=== PATIENT | female | born 1945 | race Caucasian/White ===

== ENCOUNTER 2016-09-29 23:32 | Inpatient (IN) | payer OTHER ==
[~2016-09-29] VITALS: Ht 160 cm; Wt 65.0 kg
[~2016-09-29 23:32] MED LIST: CRES10 PO; OMEP40CA3 PO; PLAVIX PO; SYN1 PO; TRIA1CAP44 PO; VITAMIN B12 PO
[2016-09-29 23:50] LABS: ADD SCAN DIFF NO
[2016-09-29 23:53] LABS: BASOPHIL # 0.1 10^3/ul (0.0-0.1); BASOPHILS % 0.6 % (0.0-2.0); EOSINOPHILS # 0.2 10^3/ul (0.0-0.5); EOSINOPHILS % 1.5 % (0.0-7.0); MEAN CORPUSCULAR HEMOGLOBIN 31.2 pg (29.0-33.0); MEAN CORPUSCULAR HGB CONC 34.1 g/dl (32.0-37.0); MEAN CORPUSCULAR VOLUME 91.3 fl (82.0-101.0); MEAN PLATELET VOLUME 10.6 fl (7.4-10.4); MONOCYTES % 7.2 % (0.0-11.0); NEUTROPHIL # 9.4 10^3/ul (1.6-7.5); NEUTROPHILS % 68.3 % (39.0-77.0); PLATELET COUNT 281 10^3/UL (140-415); RED BLOOD COUNT 4.49 10^6/ul (4.20-5.40); RED CELL DISTRIBUTION WIDTH 13.8 % (11.5-14.5); WHITE BLOOD COUNT 13.7 10^3/ul (4.8-10.8)
[2016-09-30] VITALS (11 sets, daily range): BP systolic 126–135; BP diastolic 58–90; PULSE 70–82; RESP 16–20; TEMP 99; Ht 160 cm; Wt 65.0 kg
--- NOTE | 2016-09-30 00:02 | ERA ---
ER Documentation Chief Complaint Date/Time DATE: 09/29/16 TIME: 23:59 Chief Complaint pt reports L arm and leg numbnessstarted 2320 HPI This 71-year-old female comes emergency room for 20 minutes prior having left hand and arm weakness and some left foot weakness while she was putting on her pajamas. She also had pain in her left hand and left shoulder. States that she has a history of a aneurysm. Does say that she has a very slight headache. Denies any recent fever chills. Stated that she felt well earlier today. ROS All systems reviewed and are negative except as per history of present illness. Medications Home Meds Reported Medications [Vitamin B12] No Conflict Check, 5000 MG PO DAILY 11/26/12 [Plavix] No Conflict Check, 75 MG PO DAILY 11/26/12 Levothyroxine Sodium* (Synthroid*) 100 Mcg Tablet, 100 MCG PO DAILY 10/18/12 Omeprazole* (Prilosec*) 40 Mg Capsule.dr, 40 MG PO DAILY 10/18/12 Triamterene-HCTZ (Triamterene-HCTZ) 1 Cap Capsule, 1 CAP PO DAILY 10/18/12 Rosuvastatin Calcium* (Crestor*) 10 Mg Tablet, 10 MG PO DAILY 10/18/12 Allergies Allergies: Coded Allergies: Pentazocine Lactate (Verified Allergy, Unknown, swelling, 07/31/13) acetaminophen (Verified Allergy, Unknown, swelling, 07/31/13) amoxicillin trihydrate (Verified Allergy, Unknown, swelling, 07/31/13) aspirin (Verified Allergy, Unknown, swelling, 07/31/13) codeine (Verified Allergy, Unknown, swelling, 07/31/13) ibuprofen (Verified Allergy, Unknown, swelling, 07/31/13) indomethacin (Verified Allergy, Unknown, swelling, 07/31/13) indomethacin sodium (Verified Allergy, Unknown, swelling, 07/31/13) phenylbutazone (Verified Allergy, Unknown, swelling, 07/31/13) potassium clavulanate (Verified Allergy, Unknown, swelling, 07/31/13) propoxyphene HCl (Verified Allergy, Unknown, swelling, 07/31/13) Uncoded Allergies: DARVOCET (Allergy, Unknown, swelling, 07/31/13) EMPIRIN (Allergy, Unknown, swelling, 07/31/13) FIORENAL (Allergy, Unknown, swelling, 07/31/13) TILSSON (Allergy, Unknown, swelling, 07/31/13) VACADINE (Allergy, Unknown, swelling, 07/31/13) ZOMAX (Allergy, Unknown, swelling, 07/31/13) PMhx/Soc History of Surgery: Yes (Laminectomy; Gallbladder , Sinus Surgery all> 10 yrs ago) Anesthesia Reaction: No Hx Neurological Disorder: No Hx Respiratory Disorders: No Hx Cardiac Disorders: Yes (HTN) Hx Psychiatric Problems: No Hx Miscellaneous Medical Probl: Yes (ANEURYSM, HIGH CHOLESTEROL, LYMPHOMA, KIDNEY) Hx Alcohol Use: No Hx Substance Use: No Hx Tobacco Use: No Smoking Status: Never smoker Physical Exam Vitals Vital Signs Date Time Temp Pulse Resp B/P Pulse Ox O2 Delivery O2 Flow Rate FiO2 09/30/16 01:45 99.0 82 16 131/73 98 2.0 09/30/16 01:00 98 2.0 28 09/29/16 23:45 Nasal Cannula 2 09/29/16 23:40 99.0 99 16 144/69 99 Physical Exam Const: [] No acute distress Head: Atraumatic Eyes: Normal Conjunctiva, EOMI, PERRLA ENT: Normal External Ears, Nose and Mouth. Neck: Full range of motion..~ No meningismus. Resp: Clear to auscultation bilaterally Cardio: Regular rate and rhythm, no murmurs Abd: Soft, non tender, non distended. Normal bowel sounds Skin: No petechiae or rashes Back: No midline or flank tenderness Ext: No cyanosis, or edema Neur: Awake and alert and oriented 3, cranial nerves II through XII intact, decreased vest baster strength of left hand approximately 4 out of 5 however the right hand is also weak. Able to lift both legs off the bed for greater than 10 seconds. No noticeable difference in strength of proximal left arm from the right. Cerebellar finger to nose intact. Psych: Normal Mood and Affect Result Diagram: 09/29/165 09/29/16 2345 Results 24 hrs Laboratory Tests Test 09/29/16 23:45 09/30/16 00:01 09/30/16 02:30 White Blood Count 13.710^3/ul Red Blood Count 4.4910^6/ul Hemoglobin 14.0g/dl Hematocrit 41.0% Mean Corpuscular Volume 91.3fl Mean Corpuscular Hemoglobin 31.2pg Mean Corpuscular Hemoglobin Concent 34.1g/dl Red Cell Distribution Width 13.8% Platelet Count 92485^3/UL Mean Platelet Volume 10.6fl Neutrophils % 68.3% Lymphocytes % 22.0% Monocytes % 7.2% Eosinophils % 1.5% Basophils % 0.6% Nucleated Red Blood Cells % 0.0/100WBC Neutrophils # 9.410^3/ul Lymphocytes # 3.010^3/ul Monocytes # 1.010^3/ul Eosinophils # 0.210^3/ul Basophils # 0.110^3/ul Nucleated Red Blood Cells # 0.010^3/ul Prothrombin Time 11.7Sec Prothrombin Time Ratio 0.9 INR International Normalized Ratio 0.86 Activated Partial Thromboplast Time 23.8Sec Sodium Level 146mmol/L Potassium Level 3.8mmol/L Chloride Level 103mmol/L Carbon Dioxide Level 27mmol/L Anion Gap 20 Blood Urea Nitrogen 18mg/dl Creatinine 1.08mg/dl Glucose Level 144mg/dl Hemoglobin A1c 6.9% Calcium Level 10.1mg/dl Troponin I < 0.012ng/ml Bedside Glucose 128mg/dL Urine Color YELLOW Urine Clarity CLEAR Urine pH 5.0 Urine Specific [place] 1.014 Urine Ketones NEGATIVEmg/dL Urine Nitrite NEGATIVEmg/dL Urine Bilirubin NEGATIVEmg/dL Urine Urobilinogen NEGATIVEmg/dL Urine Leukocyte Esterase 2+Kimberly/ul Urine Microscopic RBC 1/HPF Urine Microscopic WBC 4/HPF Urine Hemoglobin NEGATIVEmg/dL Urine Glucose NEGATIVEmg/dL Urine Total Protein NEGATIVEmg/dl Urine Opiates Screen Negative Urine Barbiturates Negative Urine Amphetamines Screen Negative Urine Benzodiazepines Screen Negative Urine Cocaine Screen Negative Urine Cannabinoids Negative Current Medications Medications (Trade) Dose Ordered Sig/Alden Route PRN Reason Start Time Stop Time Status Last Admin Dose Admin Ondansetron HCl 4 mg 4 mg ONCE STAT IV 09/30/16 02:32 09/30/16 02:49 DC Cefepime HCl (Maxipime 1gm/50 ml (Pmx)) 50 ml @ 100 mls/hr ONCE ONCE IVPB 09/30/16 03:30 09/30/16 03:59 DC 09/30/16 03:27 Ondansetron HCl (Zofran Inj) 4 mg ER BRIDGE PRN IV NAUSEA AND/OR VOMITING 09/30/16 04:00 10/01/16 03:59 Acetaminophen 650 mg 650 mg ER BRIDGE PRN PO MILD PAIN/FEVER 09/30/16 04:00 10/01/16 03:59 Sodium Chloride (NS) 1,000 ml @ 125 mls/hr Q8H IV 09/30/16 04:30 09/30/16 12:29 Levofloxacin (Levaquin) 250 mg DAILY PO 09/30/16 09:00 Procedures/MDM Mild strokelike symptoms with a possible a maximum NIH of 2 slight left hand decreased strength and partial left facial droop. Code stroke was called initially. Discussed the case with the tele-neurologist who does not recommend TPA at this time after examination of the patient. Does recommend MRI and MRA. Patient does have a UTI and is elderly and symptoms may be secondary to that. Patient is currently on Plavix and allergic to many medications including aspirin. Patient believes symptoms did resolve but does still have some hand numbness on her left hand. Spoke with Dr. Kc who will be admitting patient to telemetry for further monitoring. EKG interpretation: Sinus tachycardia rate of 101, left axis deviation, no ST or T-wave changes concerning for acute ischemia, normal intervals. environmental monitoring specialist interpretation: Normal sinus rhythm without arrhythmia Chest x-ray interpretation: I see no acute process. I see no infiltrates, no widened mediastinum, no pneumothorax, no pulmonary edema, no fractures CT brain interpretation: I see no acute process. I see no hemorrhage, no mass- effect or midline shift, no skull fractures Departure Diagnosis: Primary Impression: TIA (transient ischemic attack) Additional Impression: UTI (urinary tract infection) Condition: Serious RICHAR JULIO DO Sep 30, 2016 00:02
[2016-09-30 00:09] LABS: INR 0.86; PARTIAL THROMBOPLASTIN TIME 23.8 Sec (25.0-35.0); PROTIME 11.7 Sec (12.2-14.2); PT RATIO 0.9
[2016-09-30 00:12] LABS: ANION GAP 20 (8-16); BLOOD UREA NITROGEN 18 mg/dl (7-20); CALCIUM 10.1 mg/dl (8.4-10.2); CARBON DIOXIDE 27 mmol/L (21-31); CHLORIDE 103 mmol/L (97-110); CREATININE 1.08 mg/dl (0.44-1.00); GLUCOSE 144 mg/dl (70-220); POTASSIUM 3.8 mmol/L (3.5-5.1); SODIUM 146 mmol/L (135-144)
--- NOTE | 2016-09-30 00:17 | RADRPT ---
PROCEDURE: CT Brain without contrast. CLINICAL INDICATION: Code stroke TECHNIQUE: A CT of the brain was performed utilizing axial imaging from the skull base through the vertex without intravenous contrast. Multiplanar reformatted images were made.The CTDIvol is 42.93 mGy and the DLP is 630.2 mGycm. One or more the following dose reduction techniques were utilized: Automated exposure control, adjus tment of the mA and / or kV according to patient's size, or use of iterative reconstruction techniqu e. COMPARISON: 07/30/2013 FINDINGS: There is no intracranial hemorrhage, mass effect, or midline shift. No extra-axial fluid collection is seen. Minimal atrophy is identified with compensatory ventricular and sulcal enlargement. Mild decreased attenuation is seen in the periventricular and deep white matter, compatible with microva scular ischemic disease. The davila white matter differentiation is well preserved with no acute infar ct detected. The osseous structures and visualized paranasal sinuses are unremarkable. Arterial kourtney cification. Small brain calcifications are again seen in the left frontal, right frontal and possib ly the left parietal region the latter versus dural calcification largest measuring 4 mm in the left frontal region which could represent granulomas or perhaps cysticercosis unchanged compared to prev ious study. Nonspecific approximate 5 mm oval soft tissue density again apparent in subcutaneous upp er frontal extracranial soft tissues again seen not significantly changed compared to previous study. IMPRESSION: No acute bleed. No acute major territory infarct seen. Small brain calcifications again seen which could be secondary to granulomas or perhaps cysticercosis unchanged compared to previous study. Cr itical result discussed with Dr. Bahena at 12:01 a.m. on 09/30/2016. RPTAT: HJES .Chauncey Yusuf MD, Date Time Electronically viewed and signed by .Chauncey Yusuf MD, on 09/30/2016 00:17 .S/
[2016-09-30 00:28] LABS: TROPONIN-I < 0.012 ng/ml (0.00-0.12)
--- NOTE | 2016-09-30 00:42 | RADRPT ---
PROCEDURE: XR Chest. CLINICAL INDICATION: Chest pain. Stroke symptoms TECHNIQUE: Portable AP upright view of the chest was obtained. COMPARISON: 07/31/2013 FINDINGS: The cardiomediastinal silhouette is within normal limits. The lungs are clear of acute infiltrates, mild scattered senescent interstitial changes of the lung parenchyma are again suggested. There is no evidence for pleural effusion, pneumothorax or pulmonary vascular congestion. The osseous struc tures are intact with no evidence for acute abnormality. Calcification of the aorta is present. RPTAT:HJJR IMPRESSION: 1. Subtle scattered interstitial changes of the lung parenchyma similar to the prior exam without ev idence of acute intrathoracic abnormality. 2. Aortic atherosclerosis is present. Physician Anya Date Time Electronically viewed and signed by Kiel Ocampo Physician on 09/30/2016 00:41 JR/
[2016-09-30] MEDS ORDERED: ONDANSETRON 4 MG INJ IV STA (02:32)
[2016-09-30 03:01] LABS: ADD UMIC YES; UR ASCORBIC ACID 40 mg/dL (NEGATIVE); UR BILIRUBIN (Dip) NEGATIVE (NEGATIVE); UR BLOOD (Dip) NEGATIVE (NEGATIVE); UR CLARITY CLEAR (CLEAR); UR COLOR YELLOW (YELLOW); UR GLUCOSE (Dip) NEGATIVE (NEGATIVE); UR KETONES (Dip) NEGATIVE (NEGATIVE); UR LEUKOCYTE ESTERASE (Dip) 2+ Leu/ul (NEGATIVE); UR NITRITE (Dip) NEGATIVE (NEGATIVE); UR RBC 1 /HPF (0-5); UR SPECIFIC GRAVITY (Dip) 1.014 (1.003-1.030); UR TOTAL PROTEIN (Dip) NEGATIVE (NEGATIVE); UR UROBILINOGEN (Dip) NEGATIVE (NEGATIVE)
[2016-09-30 03:16] LABS: BARBITURATES Negative (NEGATIVE); BENZODIAZEPINES Negative (NEGATIVE); CANNABINOIDS Negative (NEGATIVE); COCAINE Negative (NEGATIVE); OPIATES Negative (NEGATIVE)
[2016-09-30] MEDS ORDERED: CEFEPIME 1GM/50 ML (PMX) 50 ML IVPB ONE (03:30)
[2016-09-30] MEDS ORDERED: ONDANSETRON 4 MG INJ IV PRN ×2 (04:00→13:00)
[2016-09-30] MEDS ORDERED: ACETAMINOPHEN 325 MG TAB PO PRN (04:00)
[2016-09-30] MEDS ORDERED: SOD CHLORIDE 0.9% 1,000 ML IV SCH (04:30)
--- NOTE | 2016-09-30 08:29 | RADRPT ---
PROCEDURE: US Carotids. CLINICAL INDICATION: bruit , Stroke TECHNIQUE: Multiple sonographic of the carotid bifurcation region and vertebral arteries were obta ined utilizing davila scale, duplex and color-flow imaging. The images were reviewed on a PACS worksta tion. COMPARISON: No prior studies are available for comparison. FINDINGS: Evaluation of the right carotid bifurcation region reveals no significant calcific atherosclerotic d isease. Evaluation of the left carotid bifurcation region reveals no significant calcific atherosclerotic di sease. There is antegrade flow within the vertebral arteries bilaterally. RIGHT CAROTID MEASUREMENTS: Common Carotid Nowtnt83.1 (cm/sec) Internal Carotid Artery - ruagzomj38.1 (cm/sec) Internal Carotid Artery - mid93 (cm/sec) Internal Carotid Artery - yocere95.5 (cm/sec) Internal Carotid/Common Carotid1.66 LEFT CAROTID MEASUREMENTS: Common Carotid Togvhq73 (cm/sec) Internal Carotid Artery - pcfyofnb72.9 (cm/sec) Internal Carotid Artery - mid67.2 (cm/sec) Internal Carotid Artery - .4 (cm/sec) Internal Carotid/Common Carotid1.66 RPTAT: AA IMPRESSION: No evidence for hemodynamically significant stenosis in the bilateral internal carotid arteries - va lidated velocity measurements with angiographic measurements, velocity criteria are extrapolated fro m diameter data as defined by the Society of Radiologists in Ultrasound Consensus Conference Radiolo gy 2003; 229;340-346. This study does indirectly reference the measurement of the distal ICA diamet er as the denominator for stenosis measurement. Normal antegrade flow in the vertebral arteries bilaterally. .Duane Verduzco MD, Date Time Electronically viewed and signed by .Duane Verduzco MD, MD on 09/30/2016 08:29 .S/
[2016-09-30] MEDS ORDERED: GLUCOSE GEL 15 GRAM TUBE BUCCAL PRN (09:00)
[2016-09-30] MEDS ORDERED: DEXTROSE 50% 50 ML SYRINGE IV PRN ×2 (09:00)
[2016-09-30] MEDS ORDERED: VITAMIN B12 XX SCH (09:00)
[2016-09-30] MEDS ORDERED: GLUCOSE GEL 15 GRAM TUBE PO PRN ×2 (09:00)
[2016-09-30] MEDS ORDERED: INSULIN ASPART [NOVOLOG] 3 ML PEN SC SCH (09:00)
[2016-09-30] MEDS ORDERED: GLUCAGON 1 MG INJ IM PRN (09:00)
[2016-09-30] MEDS: CLOPIDOGREL 75 MG TAB PO SCH (09:22)
[2016-09-30] MEDS: LEVOTHYROXINE 100 MCG TAB PO SCH (09:22)
[2016-09-30] MEDS: LEVOFLOXACIN 250 MG TAB PO SCH (09:23)
[2016-09-30] MEDS: PANTOPRAZOLE (EC) 40 MG TAB PO SCH (09:23)
[2016-09-30] MEDS ORDERED: CYAN100080 PO (09:26)
[2016-09-30] MEDS: INSULIN ASPART [NOVOLOG] 3 ML PEN SC SCH ×3 (12:00→20:27)
[2016-09-30 12:08] LABS: ADD SCAN DIFF NO
[2016-09-30 12:13] LABS: BASOPHIL # 0.1 10^3/ul (0.0-0.1); BASOPHILS % 0.7 % (0.0-2.0); EOSINOPHILS # 0.3 10^3/ul (0.0-0.5); EOSINOPHILS % 2.4 % (0.0-7.0); HEMOGLOBIN 13.1 g/dl (12.0-16.0); LYMPHOCYTES # 1.9 10^3/ul (0.8-2.9); LYMPHOCYTES % 17.6 % (15.0-51.0); MEAN CORPUSCULAR HEMOGLOBIN 30.8 pg (29.0-33.0); MEAN CORPUSCULAR HGB CONC 33.6 g/dl (32.0-37.0); MEAN CORPUSCULAR VOLUME 91.5 fl (82.0-101.0); MEAN PLATELET VOLUME 10.8 fl (7.4-10.4); MONOCYTE # 0.7 10^3/ul (0.3-0.9); MONOCYTES % 6.6 % (0.0-11.0); NEUTROPHIL # 7.7 10^3/ul (1.6-7.5); NEUTROPHILS % 72.4 % (39.0-77.0); PLATELET COUNT 267 10^3/UL (140-415); RED BLOOD COUNT 4.26 10^6/ul (4.20-5.40); RED CELL DISTRIBUTION WIDTH 13.9 % (11.5-14.5); WHITE BLOOD COUNT 10.7 10^3/ul (4.8-10.8)
[2016-09-30 12:57] LABS: ALANINE AMINOTRANSFERASE 38 IU/L (13-69); ALBUMIN 4.5 g/dl (3.3-4.9); ALBUMIN/GLOBULIN RATIO 1.73; ALKALINE PHOSPHATASE 71 IU/L (42-121); ANION GAP 16 (8-16); ASPARTATE AMINO TRANSFERASE 24 IU/L (15-46); BILIRUBIN,INDIRECT 0.3 mg/dl (0-1.1); BILIRUBIN,TOTAL 0.3 mg/dl (0.2-1.3); BLOOD UREA NITROGEN 17 mg/dl (7-20); CALCIUM 9.2 mg/dl (8.4-10.2); CARBON DIOXIDE 26 mmol/L (21-31); CHLORIDE 103 mmol/L (97-110); CREATINE KINASE 42 IU/L (23-200); CREATININE 0.76 mg/dl (0.44-1.00); GLUCOSE 140 mg/dl (70-220); POTASSIUM 3.2 mmol/L (3.5-5.1); SODIUM 142 mmol/L (135-144); TOTAL PROTEIN 7.1 g/dl (6.1-8.1)
[2016-09-30 13:10] LABS: TROPONIN-I < 0.012 ng/ml (0.00-0.12)
[2016-09-30 13:58] LABS: INR 0.93; PARTIAL THROMBOPLASTIN TIME 24.3 Sec (25.0-35.0); PROTIME 12.5 Sec (12.2-14.2)
--- NOTE | 2016-09-30 14:07 | RADRPT ---
PROCEDURE: MR Brain without contrast. CLINICAL INDICATION: Left-sided weakness and stroke like symptoms. TECHNIQUE: Sagittal and axial T1 weighted, axial T2 weighted, coronal GRE, axial diffusion weighte d with ADC mapping, and axial FLAIR imaging without contrast. The patient declined intravenous cont rast due to prior allergic reaction to CT contrast. COMPARISON: None FINDINGS: No diffusion weighted abnormalities are seen to suggest the presence of acute ischemia or recent inf arct. No hypointense signal abnormalities are seen on the GRE images to suggest the presence of blo od degradation products. There is no evidence of intracranial hemorrhage, mass effect, or midline sh ift. No extra-axial fluid collections are seen. Mild cortical atrophy is seen with minimal probable chronic microvascular ischemic change of the periventricular white matter. Normal flow voids are vis ible in the proximal intracranial arteries and dural sinuses, indicating patency. Minimal mucoperios teal thickening of the sphenoid sinus.. Absence or thinning of the left ocular lens, perhaps prior c ataract surgery. IMPRESSION: Minimal cortical atrophy and minimal probable chronic microvascular ischemic change. No definite ac wrangell intracranial abnormality. RPTAT: HLBE Physician Kayy Date Time Electronically viewed and signed by Physician Kayy on 09/30/2016 14:07 LE/
--- NOTE | 2016-09-30 14:37 | RADRPT ---
PROCEDURE: MRA Brain without contrast. CLINICAL INDICATION: Left-sided weakness TECHNIQUE: MR angiography of the brain was performed without intravenous contrast. Multiplanar re constructions, three-dimensional reconstructions, as well as maximal intensity projection images are produced and reviewed. COMPARISON: MRI of the brain 09/30/2016 FINDINGS: Internal carotid arteries: Patent and normal in caliber. Anterior cerebral arteries: A1 segments are codominant. Anterior communicating artery is visualized. Visualized A2 and A3 distribution of the anterior cerebral arteries are patent. Middle cerebral arteries: Both middle cerebral arteries as well as there branch vessels are patent and symmetric in appearance . Vertebral - basilar system: Both vertebral arteries are patent. Mild right-sided dominance. Basilar artery is patent. Posterior cerebral arteries: Patent bilaterally. IMPRESSION: Normal MRA of the brain. No aneurysm, arteriovenous malformation, or abrupt vessel cutoff is identified. RPTAT: AADD .Scott Alfaro MD, MD Date Time Electronically viewed and signed by .Scott Alfaro MD, on 09/30/2016 14:36 .B/
--- NOTE | 2016-09-30 14:40 | RADRPT ---
PROCEDURE: MRA Neck without contrast. CLINICAL INDICATION: Left-sided weakness TECHNIQUE: MRA of the neck was performed using time of flight technique without intravenous contra st. Maximal intensity projection images and three-dimensional reconstruction images are producing r eviewed. Degrees of stenosis are determined by direct reference to the distal normal vessel diameter as per NASCET criteria. COMPARISON: No prior studies are available for comparison. FINDINGS: Aortic arch: Not within the field of view. Right common carotid artery: Patent. Right internal carotid artery: Patent. Right external carotid artery: Patent with normal branching. Left common carotid artery: Patent. Left internal carotid artery: Patent. Left external carotid artery: Patent with normal branching. Right vertebral artery: Patent. Left vertebral artery: Patent. Vertebral dominance pattern: Codominant IMPRESSION: Normal MRA of the extracranial circulation. RPTAT: AADD .Scott Alfaro MD, MD Date Time Electronically viewed and signed by .Scott Alfaro MD, on 09/30/2016 14:39 .B/
--- NOTE | 2016-09-30 15:53 | CONS ---
Date/Time of Note Date/Time of Note DATE: 09/30/16 TIME: 15:39 Assessment/Plan Assessment/Plan Chief Complaint/Hosp Course Left arm and leg numbness Problems: Additional Assessment/Plan Patient is a 71-year-old woman with history of cerebral aneurysm was admitted following sudden onset of left arm and leg numbness without any focal weakness, speech or swallowing problems. CT scan of the brain, MRI of the brain, MR angiogram of the head and neck are all normal. Examination showed pronator drift in the left upper extremity otherwise unremarkable. My impression is that she likely had TIAs and her symptoms should improve less than 24 hours or a small right subcortical lacunar stroke causing left hemisensory symptoms. Since MR angiogram of head did not show the aneurysm, will order CT angiogram. PLAN: 1 CT angiogram of the head 2 continue Plavix [address] Odonnell will follow in AM Consultation Date/Type/Reason Admit Date/Time Sep 30, 2016 at 03:58 Date of Consultation: Sep 30, 2016 Type of Consultation: Neurology Reason for Consultation Left arm and leg numbness Referring Provider: PRETTY TURPIN MD Hx of Present Illness Patient is a 71-year-old woman with past medical history of cerebral aneurysm has been followed up at [facility] as well as in my office was brought in following sudden onset of left arm and leg numbness. There is no clear history of weakness of fall as per patient and there is no speech or swallowing problems. She came to the emergency room and was seen by telemetry neurologist and not found to be a candidate for TPA. CT scan of the brain was unremarkable. MRI of the brain showed no acute stroke. MR angiogram of head and neck were unremarkable. Her symptom has been improving but continued to have numbness and tingling in left arm and leg. No history of fall. Constitutional: improved, no complaints Eyes: no complaints ENT: no complaints Respiratory: no complaints Cardiovascular: no complaints Gastrointestinal: no complaints Genitourinary: no complaints Musculoskeletal: no complaints Skin: no complaints Neurologic: other (Numbness and tingling in left arm and leg) Endocrine: no complaints Lymphatic: no complaints Psychological: nl mood/affect, no complaints Immunologic: no complaints Past Medical History Medical History: other (Cerebral aneurysm) Social History Alcohol Use: none Smoking Status: Never smoker Exam/Review of Systems Vital Signs Vitals Vital Signs Date Time Temp Pulse Resp B/P Pulse Ox O2 Delivery O2 Flow Rate FiO2 09/30/16 12:05 98.4 79 18 127/60 94 09/30/16 01:45 2.0 09/30/16 01:00 28 09/29/16 23:45 Nasal Cannula Exam Constitutional: alert, oriented, well developed Psych: nl mood/affect, no complaints Head: atraumatic, normocephalic Eyes: EOMI, nl conjunctiva, nl lids ENMT: nl external ears & nose, nl lips & teeth, nl nasal mucosa & septum Neck: non-tender, supple Respiratory: clear to auscultation, normal air movement Cardiovascular: nl pulses, regular rate and rhythm Gastrointestinal: nl liver, spleen, non-tender, soft Musculoskeletal: nl extremities to inspection Extremities: normal pulses 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, nl mental status, nl speech, other (Mild weakness left upper extremity with pronator drift) Skin: nl turgor, rash or lesions Lymph: nl lymph nodes Results Result Diagram: 09/30/16 1126 09/30/16 1126 Results 24 hrs Laboratory Tests Test 09/29/16 23:45 09/30/16 00:01 09/30/16 02:30 09/30/16 09:15 White Blood Count 13.7 H Red Blood Count 4.49 Hemoglobin 14.0 Hematocrit 41.0 Mean Corpuscular Volume 91.3 Mean Corpuscular Hemoglobin 31.2 Mean Corpuscular Hemoglobin Concent 34.1 Red Cell Distribution Width 13.8 Platelet Count 281 Mean Platelet Volume 10.6 H Neutrophils % 68.3 Lymphocytes % 22.0 Monocytes % 7.2 Eosinophils % 1.5 Basophils % 0.6 Nucleated Red Blood Cells % 0.0 Neutrophils # 9.4 H Lymphocytes # 3.0 H Monocytes # 1.0 H Eosinophils # 0.2 Basophils # 0.1 Nucleated Red Blood Cells # 0.0 Prothrombin Time 11.7 L Prothrombin Time Ratio 0.9 INR International Normalized Ratio 0.86 Activated Partial Thromboplast Time 23.8 L Sodium Level 146 H Potassium Level 3.8 Chloride Level 103 Carbon Dioxide Level 27 Anion Gap 20 H Blood Urea Nitrogen 18 Creatinine 1.08 H Glucose Level 144 Hemoglobin A1c 6.9 H Calcium Level 10.1 Troponin I < 0.012 Bedside Glucose 128 100 Urine Color YELLOW Urine Clarity CLEAR Urine pH 5.0 Urine Specific [place] 1.014 Urine Ketones NEGATIVE Urine Nitrite NEGATIVE Urine Bilirubin NEGATIVE Urine Urobilinogen NEGATIVE Urine Leukocyte Esterase 2+ H Urine Microscopic RBC 1 Urine Microscopic WBC 4 Urine Hemoglobin NEGATIVE Urine Glucose NEGATIVE Urine Total Protein NEGATIVE Urine Opiates Screen Negative Urine Barbiturates Negative Urine Amphetamines Screen Negative Urine Benzodiazepines Screen Negative Urine Cocaine Screen Negative Urine Cannabinoids Negative Test 09/30/16 11:26 09/30/16 12:14 White Blood Count 10.7 # Red Blood Count 4.26 Hemoglobin 13.1 Hematocrit 39.0 Mean Corpuscular Volume 91.5 Mean Corpuscular Hemoglobin 30.8 Mean Corpuscular Hemoglobin Concent 33.6 Red Cell Distribution Width 13.9 Platelet Count 267 Mean Platelet Volume 10.8 H Neutrophils % 72.4 Lymphocytes % 17.6 Monocytes % 6.6 Eosinophils % 2.4 Basophils % 0.7 Nucleated Red Blood Cells % 0.0 Neutrophils # 7.7 H Lymphocytes # 1.9 Monocytes # 0.7 Eosinophils # 0.3 Basophils # 0.1 Nucleated Red Blood Cells # 0.0 Prothrombin Time 12.5 Prothrombin Time Ratio 1.0 INR International Normalized Ratio 0.93 Activated Partial Thromboplast Time 24.3 L Sodium Level 142 Potassium Level 3.2 L Chloride Level 103 Carbon Dioxide Level 26 Anion Gap 16 Blood Urea Nitrogen 17 Creatinine 0.76 Glucose Level 140 Calcium Level 9.2 Total Bilirubin 0.3 Direct Bilirubin 0.00 Indirect Bilirubin 0.3 Aspartate Amino Transf (AST/SGOT) 24 Alanine Aminotransferase (ALT/SGPT) 38 Alkaline Phosphatase 71 Creatine Kinase 42 Creatine Kinase Index 1.4 Creatinine Kinase MB (Mass) 0.60 Troponin I < 0.012 Total Protein 7.1 Albumin 4.5 Globulin 2.60 Albumin/Globulin Ratio 1.73 Bedside Glucose 113 Medications Medications Current Medications Levofloxacin (Levaquin) 250 mg DAILY PO Last administered on 09/30/16 09:23; Admin Dose 250 MG; Start 09/30/16 at 09:00 Levothyroxine Sodium (Synthroid) 100 mcg DAILY@06 PO Last administered on 09:22; Admin Dose 100 MCG; Start 09/30/16 at 09:00 Pantoprazole (Protonix Tab) 40 mg DAILY@06 PO Last administered on 09/30/16 09: 23; Admin Dose 40 MG; Start 09/30/16 at 09:00 Atorvastatin Calcium (Lipitor) 40 mg DAILY@21 PO ; Start 09/30/16 at 21:00 Clopidogrel Bisulfate (plaVIX) 75 mg DAILY PO Last administered on 09/30/16t 09: 22; Admin Dose 75 MG; Start 09/30/16 at 09:00 Miscellaneous Information 5,000 mg DAILY XX ; Start 09/30/16 at 09:00; Status UNV Diagnostic Test (Pha) (Accu-Chek) 1 ea 02 XX ; Start 10/01/16 at 02:00 Miscellaneous Information 1 ea NOTE XX ; Start 09/30/16 at 09:00 Glucose (Glutose) 15 gm Q15M PRN PO DECREASED GLUCOSE; Start 09/30/16 at 09:00 Glucose (Glutose) 22.5 gm Q15M PRN PO DECREASED GLUCOSE; Start 09/30/16 at 09:00 Dextrose (D50w Syringe) 25 ml Q15M PRN IV DECREASED GLUCOSE; Start 09/30/16 at 09:00 Dextrose (D50w Syringe) 50 ml Q15M PRN IV DECREASED GLUCOSE; Start 09/30/16 at 09:00 Glucagon (Glucagen) 1 mg Q15M PRN IM DECREASED GLUCOSE; Start 09/30/16 at 09:00 Glucose (Glutose) 15 gm Q15M PRN BUCCAL DECREASED GLUCOSE; Start 09/30/16 at 09: 00 Ondansetron HCl (Zofran Inj) 4 mg Q6H PRN IV NAUSEA AND/OR VOMITING; Start 09/30 at 13:[address] brain 09/30/2016 IMPRESSION: No acute bleed. No acute major territory infarct seen. Small brain calcifications again seen which could be secondary to granulomas or perhaps cysticercosis unchanged compared to previous study. Critical result discussed with Dr. Bahena at 12:01 a.m. on 09/30/2016. RPTAT: HJES .Chauncey Yusuf MD, MD Date Time Electronically viewed and signed by .Chauncey Yusuf MD, MD on 09/30/2016 00:17 .S/ MRI of the brain 09/30/2016 IMPRESSION: Minimal cortical atrophy and minimal probable chronic microvascular ischemic change. No definite acute intracranial abnormality. RPTAT: HLBE Chantale Johnson, Physician Date Time Electronically viewed and signed by Chantale Johnson, Physician on 09/30/2016 14 :07 MR angiogram of the brain 09/30/2016 IMPRESSION: Normal MRA of the brain. No aneurysm, arteriovenous malformation, or abrupt vessel cutoff is identified. RPTAT: AADD .Scott Alfaro MD, MD Date Time Electronically viewed and signed by .Scott Alfaro MD, on 09/30/2016 14:36 MR angiogram of the neck 09/30/2016 IMPRESSION: Normal MRA of the extracranial circulation. RPTAT: AADD .Scott Alfaro MD, MD Date Time Electronically viewed and signed by .Scott Alfaro MD, MD on 09/30/2016 14:39 Carotid ultrasound 09/30/2016 IMPRESSION: No evidence for hemodynamically significant stenosis in the bilateral internal carotid arteries - validated velocity measurements with angiographic measurements, velocity criteria are extrapolated from diameter data as defined by the Society of Radiologists in Ultrasound Consensus Conference Radiology 2003 ; 229;340-346. This study does indirectly reference the measurement of the distal ICA diameter as the denominator for stenosis measurement. Normal antegrade flow in the vertebral arteries bilaterally. .Duane Verduzco MD, MD Date Time Electronically viewed and signed by .Duane Verduzco MD, MD on 09/30/2016 08: 29 RAHUL HERRERA MD Sep 30, 2016 15:50
[2016-09-30] MEDS ORDERED: POTASSIUM CHLORIDE (SR) 20 MEQ TAB PO STA (16:21)
--- NOTE | 2016-09-30 16:38 | HP ---
Date/Time of Note Date/Time of Note DATE: 09/30/16 TIME: 16:24 Assessment/Plan VTE Prophylaxis VTE Prophylaxis Intervention: SCD's Lines/Catheters IV Catheter Type (from [facility], [place]): Peripheral IV Central line still needed: No Urinary Cath still in place: No Assessment/Plan Assessment/Plan 1. TIA vs CVA: currently, she is asymptomatic. We will continue her work-up with complete imaging studies (MRI/MRA/CT Angiogram, Carotid U/S). Continue her plavix. I spoke to Dr. Osorio who will be evaluating the patient this afternoon. PT evaluation as well. 2. HTN: Stable; continue current medications 3. Hypothyroidism: Check TSH and free T4 and re-start levothyroxine 4. Hyperlipidemia: check lipid profile and restart statin; will also check LFTs. 5. GERD: Continue PPI. 6. UTI: follow-up on culture; continue levaquin. 7. GI/DVT prophylaxis: SCDs and PPI. HPI/ROS Admit Date/Time Admit Date/Time Sep 30, 2016 at 03:58 Hx of Present Illness The patient is a pleasant 71 year old female with a previous CVA and aneurysm ( approximately 1 CM), HTN, GERD, and hypothyroidism who presented to the ED after experiencing numbness and weakness in the LLE while putting on her pajamas. She said it lasted for about 20 minutes and she presented to the ED with the aforementioned symptoms. She denies N/V/diaphoresis/facial droop or weakness in her other extremities. She is under the care of Dr. Osorio as an outpatient. ROS Negative, except as stated above Constitutional: improved Eyes: no complaints ENT: no complaints Respiratory: no complaints Cardiovascular: no complaints Gastrointestinal: no complaints Genitourinary: no complaints Musculoskeletal: no complaints Skin: no complaints Neurologic: other (Numbness and tingling in left arm and leg) Endocrine: no complaints Lymphatic: no complaints Psychological: nl mood/affect, no complaints Immunologic: no complaints PMH/Family/Social Past Medical History Medical History: cancer (Lymphoma treated about 16 years ago), GERD, hypertension, hypothyroid, other (Cerebral aneurysm) Past Surgical History Past Surgical Hx: other (excisional biopsy) Family History Significant Family History: no pertinent family hx Social History Alcohol Use: none Smoking Status: Never smoker Drug Use: none Exam/Review of Systems Vital Signs Vitals Vital Signs Date Time Temp Pulse Resp B/P Pulse Ox O2 Delivery O2 Flow Rate FiO2 09/30/16 15:52 98.6 77 20 126/59 94 09/30/16 01:45 2.0 09/30/16 01:00 28 09/29/16 23:45 Nasal Cannula Exam Constitutional: alert, oriented Psych: no complaints Head: normocephalic Eyes: nl conjunctiva ENMT: nl external ears & nose, other (no facial droop) Neck: supple Respiratory: clear to auscultation Cardiovascular: regular rate and rhythm Gastrointestinal: soft Musculoskeletal: muscle weakness, nl extremities to inspection, other (LLE 4/5 ; RLE 5/5 ) Extremities: other (contracture of the right index finger.) 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, nl mental status, nl speech Skin: nl turgor Labs Result Diagram: 09/30/16 1126 09/30/16 1126 Medications Medications Current Medications Levofloxacin (Levaquin) 250 mg DAILY PO Last administered on 09/30/16 09:23; Admin Dose 250 MG; Start 09/30/16 at 09:00 Levothyroxine Sodium (Synthroid) 100 mcg DAILY@06 PO Last administered on 09:22; Admin Dose 100 MCG; Start 09/30/16 at 09:00 Pantoprazole (Protonix Tab) 40 mg DAILY@06 PO Last administered on 09/30/16 09: 23; Admin Dose 40 MG; Start 09/30/16 at 09:00 Atorvastatin Calcium (Lipitor) 40 mg DAILY@21 PO ; Start 09/30/16 at 21:00 Clopidogrel Bisulfate (plaVIX) 75 mg DAILY PO Last administered on 09/30/16 09: 22; Admin Dose 75 MG; Start 09/30/16 at 09:00 Miscellaneous Information 5,000 mg DAILY XX ; Start 09/30/16 at 09:00; Status UNV Diagnostic Test (Pha) (Accu-Chek) 1 ea 02 XX ; Start 10/01/16 at 02:00 Miscellaneous Information 1 ea NOTE XX ; Start 09/30/16 at 09:00 Glucose (Glutose) 15 gm Q15M PRN PO DECREASED GLUCOSE; Start 09/30/16 at 09:00 Glucose (Glutose) 22.5 gm Q15M PRN PO DECREASED GLUCOSE; Start 09/30/16 at 09:00 Dextrose (D50w Syringe) 25 ml Q15M PRN IV DECREASED GLUCOSE; Start 09/30/16 at 09:00 Dextrose (D50w Syringe) 50 ml Q15M PRN IV DECREASED GLUCOSE; Start 09/30/16 at 09:00 Glucagon (Glucagen) 1 mg Q15M PRN IM DECREASED GLUCOSE; Start 09/30/16 at 09:00 Glucose (Glutose) 15 gm Q15M PRN BUCCAL DECREASED GLUCOSE; Start 09/30/16 at 09: 00 Ondansetron HCl (Zofran Inj) 4 mg Q6H PRN IV NAUSEA AND/OR VOMITING; Start 09/30 at 13:00 PRETTY TURPIN MD Sep 30, 2016 16:36
[2016-09-30] MEDS ORDERED: POTA20TA96 PO (17:37)
[2016-09-30] MEDS: ATORVASTATIN 40 MG TAB PO SCH (20:26)
[2016-09-30] MEDS: ACCU-CHEK XX SCH (20:43)
[2016-09-30] MEDS ORDERED: POTASSIUM CHLORIDE (SR) 20 MEQ TAB PO ONE (21:00)
[2016-09-30] MEDS: LORAZEPAM 0.5 MG TAB PO PRN (22:25)
[2016-10-01] VITALS (14 sets, daily range): BP systolic 114–139; BP diastolic 56–77; PULSE 64–81; RESP 16–20
[2016-10-01] MEDS: PANTOPRAZOLE (EC) 40 MG TAB PO SCH (05:38)
[2016-10-01] MEDS: LEVOTHYROXINE 100 MCG TAB PO SCH (05:39)
[2016-10-01] MEDS: INSULIN ASPART [NOVOLOG] 3 ML PEN SC SCH ×4 (08:00→21:00)
[2016-10-01 08:03] LABS: CALCIUM 8.7 mg/dl (8.4-10.2); CREATININE 0.77 mg/dl (0.44-1.00); POTASSIUM 3.7 mmol/L (3.5-5.1)
[2016-10-01] MEDS: CLOPIDOGREL 75 MG TAB PO SCH (08:22)
[2016-10-01] MEDS: LEVOFLOXACIN 250 MG TAB PO SCH (08:36)
[2016-10-01 09:38] LABS: CHOL/HDL RATIO 4.4 RATIO
--- NOTE | 2016-10-01 12:54 | PN ---
Date/Time of Note Date/Time of Note DATE: 10/01/16 TIME: 12:51 Assessment/Plan VTE Prophylaxis VTE Prophylaxis Intervention: other Lines/Catheters IV Catheter Type (from Nrs): Peripheral IV Urinary Cath still in place: No Assessment/Plan Assessment/Plan 1. neuro: l sided weakness resolving (b) no evidence of cva or blood vessel abnormality (c) cont secondary prevention 2. Subjective 24 Hr Interval Summary Free Text/Dictation pt feels better, still some L sided weakness, but eating ok and participated with therapy Exam/Review of Systems Vital Signs Vitals Vital Signs Date Time Temp Pulse Resp B/P Pulse Ox O2 Delivery O2 Flow Rate FiO2 10/01/16 12:25 81 10/01/16 11:43 97.9 20 114/60 95 09/30/16 01:45 2.0 09/30/16 01:00 28 09/29/16 23:45 Nasal Cannula Intake and Output 09/30/16 09/30/16 10/01/16 15:00 23:00 07:00 Intake Total 150 ml 250 ml Balance 150 ml 250 ml Exam nad, ctab, rrr, soft nt Results Result Diagram: 09/30/16 1126 10/01/16 0612 Results 24 hrs Laboratory Tests Test 09/30/16 17:31 09/30/16 20:17 10/01/16 06:12 10/01/16 06:17 Bedside Glucose 90 107 Sodium Level 142 Potassium Level 3.7 Chloride Level 107 Carbon Dioxide Level 27 Anion Gap 12 Blood Urea Nitrogen 14 Creatinine 0.77 Glucose Level 98 # Calcium Level 8.7 Magnesium Level 1.5 L Thyroid Stimulating Hormone (TSH) 0.180 L Free Thyroxine 1.55 Hemoglobin A1c 6.8 H Triglycerides Level 225 H Cholesterol Level 150 LDL Cholesterol, Calculated 71 HDL Cholesterol 34 Cholesterol/HDL Ratio 4.4 Test 10/01/16 08:22 10/01/16 11:47 Bedside Glucose 97 144 Medications Medications Current Medications Levofloxacin (Levaquin) 250 mg DAILY PO Last administered on 10/01/16 08:36; Admin Dose 250 MG; Start 09/30/16 at 09:00 Levothyroxine Sodium (Synthroid) 100 mcg DAILY@06 PO Last administered on 05:39; Admin Dose 100 MCG; Start 09/30/16 at 09:00 Pantoprazole (Protonix Tab) 40 mg DAILY@06 PO Last administered on 10/01/16 05 :38; Admin Dose 40 MG; Start 09/30/16 at 09:00 Atorvastatin Calcium (Lipitor) 40 mg DAILY@21 PO Last administered on 09/30/16 20:26; Admin Dose 40 MG; Start 09/30/16 at 21:00 Clopidogrel Bisulfate (plaVIX) 75 mg DAILY PO Last administered on 10/01/16 08 :22; Admin Dose 75 MG; Start 09/30/16 at 09:00 Miscellaneous Information 5,000 mg DAILY XX ; Start 09/30/16 at 09:00; Status UNV Diagnostic Test (Pha) (Accu-Chek) 1 ea 02 XX ; Start 10/01/16 at 02:00 Miscellaneous Information 1 ea NOTE XX ; Start 09/30/16 at 09:00 Glucose (Glutose) 15 gm Q15M PRN PO DECREASED GLUCOSE; Start 09/30/16 at 09:00 Glucose (Glutose) 22.5 gm Q15M PRN PO DECREASED GLUCOSE; Start 09/30/16 at 09:00 Dextrose (D50w Syringe) 25 ml Q15M PRN IV DECREASED GLUCOSE; Start 09/30/16 at 09:00 Dextrose (D50w Syringe) 50 ml Q15M PRN IV DECREASED GLUCOSE; Start 09/30/16 at 09:00 Glucagon (Glucagen) 1 mg Q15M PRN IM DECREASED GLUCOSE; Start 09/30/16 at 09:00 Glucose (Glutose) 15 gm Q15M PRN BUCCAL DECREASED GLUCOSE; Start 09/30/16 at 09: 00 Ondansetron HCl (Zofran Inj) 4 mg Q6H PRN IV NAUSEA AND/OR VOMITING; Start 09/30 at 13:00 Lorazepam (Ativan) 0.5 mg HS PRN PO INSOMNIA Last administered on 09/30/16 22: 25; Admin Dose 0.5 MG; Start 09/30/16 at 22:30 Miscellaneous Information (*Order Clarification Bulletin) MEDICATION REQUIRES CLARIFICATION:PLE... Q8H XX ; Start 10/01/16 at 08:00 SEUN BRICEÑO MD Oct 01, 2016 12:53
--- NOTE | 2016-10-01 12:56 | PDOCDIS ---
Discharge Instructions CONDITION Patient Condition: Good HOME CARE INSTRUCTIONS: Special Diet: CARB CONTROLLED ACTIVITY: Activity Restrictions: Slowly Increase Activity FOLLOW UP/APPOINTMENTS Follow-up Plan 1. follow up with primary care in 1 week SEUN BRICEÑO MD Oct 01, 2016 12:56
--- NOTE | 2016-10-01 12:59 | DS ---
Date/Time of Note Date/Time of Note DATE: 10/01/16 TIME: 12:57 Discharge Summary Admission/Discharge Info Admit Date/Time Sep 30, 2016 at 03:58 Discharge Date/Time october 01, 2016 Discharge Diagnosis 1. L sided weakness, improved Consults jacquelin wong md- neurology Hx of Present Illness The patient is a pleasant 71 year old female with a previous CVA and aneurysm ( approximately 1 CM), HTN, GERD, and hypothyroidism who presented to the ED after experiencing numbness and weakness in the LLE while putting on her pajamas. She said it lasted for about 20 minutes and she presented to the ED with the aforementioned symptoms. She denies N/V/diaphoresis/facial droop or weakness in her other extremities. She is under the care of Dr. Osorio as an outpatient. Hospital Course Patient admitted with L sided weakness, MRI and MRA of head and neck did not reveal any stroke or vascular lesion. she is treated expectantly. SHe participated in therapy and is cleared to be discharged to home. Home Meds Reported Medications Potassium Chloride* (Potassium Chloride*) 20 Meq Tablet.er, 10 MEQ PO BID, TAB.SA 09/30/16 Cyanocobalamin* (Vitamin B-12*) 1,000 Mcg Tablet.sa, 2500 MCG PO DAILY, TAB 09/30/16 [Vitamin B12] No Conflict Check, 5000 MG PO DAILY 11/26/12 [Plavix] No Conflict Check, 75 MG PO DAILY 11/26/12 Levothyroxine Sodium* (Synthroid*) 100 Mcg Tablet, 100 MCG PO DAILY 10/18/12 Omeprazole* (Prilosec*) 40 Mg Capsule.dr, 40 MG PO DAILY 10/18/12 Triamterene-HCTZ (Triamterene-HCTZ) 1 Cap Capsule, 1 CAP PO DAILY 10/18/12 Rosuvastatin Calcium* (Crestor*) 10 Mg Tablet, 10 MG PO DAILY 10/18/12 Primary Care Provider Brain Perry MD Time spent on discharge: > 30 minutes Pending Labs Laboratory Tests Test 09/30/16 17:31 09/30/16 20:17 10/01/16 06:12 10/01/16 06:17 Bedside Glucose 90mg/dL (70-220) 107mg/dL (70-220) Sodium Level 142mmol/L (135-144) Potassium Level 3.7mmol/L (3.5-5.1) Chloride Level 107mmol/L (97-110) Carbon Dioxide Level 27mmol/L (21-31) Anion Gap 12 (8-16) Blood Urea Nitrogen 14mg/dl (7-20) Creatinine 0.77mg/dl (0.44-1.00) Glucose Level 98mg/dl (70-220) Calcium Level 8.7mg/dl (8.4-10.2) Magnesium Level 1.5mg/dl (1.7-2.5) Thyroid Stimulating Hormone (TSH) 0.180MIU/L (0.465-4.680) Free Thyroxine 1.55ng/dl (0.78-2.44) Hemoglobin A1c 6.8% (0-5.9) Triglycerides Level 225mg/dl (0-149) Cholesterol Level 150mg/dl (100-200) LDL Cholesterol, Calculated 71mg/dl HDL Cholesterol 34mg/dl (33-92) Cholesterol/HDL Ratio 4.4RATIO Test 10/01/16 08:22 10/01/16 11:47 Bedside Glucose 97mg/dL (70-220) 144mg/dL (70-220) SEUN BRICEÑO MD Oct 01, 2016 12:58
[2016-10-01] MEDS: ATENOLOL 25 MG TAB PO SCH (14:06)
[2016-10-01] MEDS: CYANOCOBALAMIN 500 MCG TAB PO SCH (18:00)
[2016-10-01] MEDS ORDERED: METHYLPREDNISOLONE 125 MG INJ IV ONE (19:30)
[2016-10-01] MEDS ORDERED: DIPHENHYDRAMINE 50 MG INJ IV PRN (19:30)
[2016-10-01] MEDS: APIXABAN 5 MG TABLET PO SCH (21:08)
[2016-10-01] MEDS: ATORVASTATIN 40 MG TAB PO SCH (21:08)
[2016-10-01] MEDS: ACCU-CHEK XX SCH (21:11)
[2016-10-01] MEDS: LORAZEPAM 0.5 MG TAB PO PRN (21:11)
[2016-10-02] VITALS (10 sets, daily range): BP systolic 101–129; BP diastolic 55–64; PULSE 58–73; RESP 16–17
[2016-10-02] MEDS: LEVOTHYROXINE 100 MCG TAB PO SCH (06:28)
[2016-10-02] MEDS: PANTOPRAZOLE (EC) 40 MG TAB PO SCH (06:28)
[2016-10-02] MEDS: INSULIN ASPART [NOVOLOG] 3 ML PEN SC SCH ×3 (07:35→17:54)
[2016-10-02] MEDS: ATENOLOL 25 MG TAB PO SCH (09:00)
[2016-10-02] MEDS: LEVOFLOXACIN 250 MG TAB PO SCH (09:07)
[2016-10-02] MEDS: APIXABAN 5 MG TABLET PO SCH (09:07)
[2016-10-02] MEDS: CYANOCOBALAMIN 500 MCG TAB PO SCH (09:09)
--- NOTE | 2016-10-02 11:18 | CONS ---
Date/Time of Note Date/Time of Note DATE: 10/02/16 TIME: 11:09 Consult Date/Type/Reason Admit Date/Time Sep 30, 2016 at 03:58 Initial Consult Date 09/30/16 Type of Consultation: Neurology Reason for Consultation TIA eval Ordering Provider: PRETTY TURPIN MD Subjective complaints of some dizziness and mild headache no further left sided numbness and tingling reported newly diagnosed afib, plavix was stopped and Apixaban started Objective Vital Signs Date Time Temp Pulse Resp B/P Pulse Ox O2 Delivery O2 Flow Rate FiO2 10/02/16 08:16 59 10/02/16 07:27 98.1 16 128/60 99 10/01/16 13:11 Room Air 09/30/16 01:45 2.0 09/30/16 01:00 28 Intake and Output 10/01/16 10/01/16 10/02/16 14:59 22:59 06:59 Intake Total 1400 ml 360 ml Balance 1400 ml 360 ml Exam awake alert x3 no aphasia follows commands well no neglect CN: II-XII intact Motor: 5/5 UE and LE Sensory intact throughout Coordination: no ataxia reflexes symmetric Results/Medications Result Diagram: 09/30/16 1126 10/01/16 0612 Results 24 hrs Laboratory Tests Test 10/01/16 11:47 10/01/16 17:26 10/01/16 20:16 10/02/16 07:29 Bedside Glucose 144 103 109 138 Medications Current Medications Levofloxacin (Levaquin) 250 mg DAILY PO Last administered on 10/02/16 09:07; Admin Dose 250 MG; Start 09/30/16 at 09:00 Levothyroxine Sodium (Synthroid) 100 mcg DAILY@06 PO Last administered on 06:28; Admin Dose 100 MCG; Start 09/30/16 at 09:00 Pantoprazole (Protonix Tab) 40 mg DAILY@06 PO Last administered on 10/02/16 06 :28; Admin Dose 40 MG; Start 09/30/16 at 09:00 Atorvastatin Calcium (Lipitor) 40 mg DAILY@21 PO Last administered on 21:08; Admin Dose 40 MG; Start 09/30/16 at 21:00 Diagnostic Test (Pha) (Accu-Chek) 1 ea 02 XX ; Start 10/01/16 at 02:00 Miscellaneous Information 1 ea NOTE XX ; Start 09/30/16 at 09:00 Glucose (Glutose) 15 gm Q15M PRN PO DECREASED GLUCOSE; Start 09/30/16 at 09:00 Glucose (Glutose) 22.5 gm Q15M PRN PO DECREASED GLUCOSE; Start 09/30/16 at 09:00 Dextrose (D50w Syringe) 25 ml Q15M PRN IV DECREASED GLUCOSE; Start 09/30/16 at 09:00 Dextrose (D50w Syringe) 50 ml Q15M PRN IV DECREASED GLUCOSE; Start 09/30/16 at 09:00 Glucagon (Glucagen) 1 mg Q15M PRN IM DECREASED GLUCOSE; Start 09/30/16 at 09:00 Glucose (Glutose) 15 gm Q15M PRN BUCCAL DECREASED GLUCOSE; Start 09/30/16 at 09: 00 Ondansetron HCl (Zofran Inj) 4 mg Q6H PRN IV NAUSEA AND/OR VOMITING; Start 09/30 at 13:00 Lorazepam (Ativan) 0.5 mg HS PRN PO INSOMNIA Last administered on 10/01/16 21: 11; Admin Dose 0.5 MG; Start 09/30/16 at 22:30 Atenolol (Tenormin) 25 mg DAILY PO Last administered on 10/01/16 14:06; Admin Dose 25 MG; Start 10/01/16 at 13:30 Apixaban (Eliquis) 5 mg BID PO Last administered on 10/02/16 09:07; Admin Dose 5 MG; Start 10/01/16 at 21:00 Cyanocobalamin (Vitamin B12) 2,500 mcg DAILY PO Last administered on 10/02/16 09:09; Admin Dose 2,500 MCG; Start 10/01/16 at 18:00 Diphenhydramine HCl (Benadryl) 25 mg Q8H PRN IV ITCHING ; Start 10/01/16 at 19: 30 Assessment/Plan Chief Complaint/Hosp Course 71yo female with history of lymphoma currently being treated with XRT, hx of cerebral aneurysm (unseen on MRA) newly diagnosed afib admitted with transient left sided parasthesias for TIA work up. During admission newly dx afib, started on Apixaban. A CTA was ordered to further eval for cerebral aneuryms however patient reports a severe contrast allergy in which she has anaphylaxis type events, therefore CTA was discontinued. MRI Brain shows no acute infarction. Recommendations: -maintain normotensive blood pressure <140/90 -rate control afib, currently on apixaban for secondary stroke prevention -LDL : 71, at target, HBA1C 6.8% diabetes education adjustment of medications as needed -advised patient that being on anticoagulation does increase her risk for rupture of aneurysm will recommend that she immediately return to the ER if she experiences any further neurologic symptoms in the future and have her follow up closely with Dr. Osorio upon discharge -PT/OT evaluation, dc planning Problems: BRADFORD KNOX MD Oct 02, 2016 11:17
[2016-10-02] MEDS ORDERED: APIX5TAB PO (12:58)
--- NOTE | 2016-10-02 15:55 | RADRPT ---
Echocardiogram Report Patient Name: DEIDRA YI Gender: Female Date: 1945 Study Date: 01-Oct-2016 Chart Clerk: Hannah Steinberg [facility] Location: 5537 Ref. Physician: SEUN BRICEÑO Quality: Good Procedures: Transthoracic echocardiogram with complete 2D, M-Mode, and doppler examination. Indications: r/o cva. 2D/M Mode Doppler Measurement Value Normal Ranges Measurement Value Normal Ranges LVIDd 2D 3.8 3.5 - 5.6 cm AV Peak Junior 1.2 m/sec LVIDs 2D 2.1 2.1 - 4.1 cm AV Peak PG 5.7 mmHg LVPWd 2D 0.9 0.6 - 1.1 cm AI Peak PG 71.1 mmHg IVSd 2D 0.8 0.6 - 1.1 cm AI Peak Junior 4.2 m/sec AoR Diam 2D 2.8 2.0 - 3.7 cm AI PHT 457.2 msec EDV 2D 63.1 cm3 LVOT Peak Junior 0.8 m/sec ESV 2D 9.1 cm3 LVOT Peak PG 2.7 mmHg LA Dimen 2D 2.6 2.3 - 4.0 cm MV E Peak Junior 0.8 m/sec MV A Peak Junior 1.0 m/sec MV E/A 0.8 MV Decel Time 180 msec MV Decel Daniels 4 MV E/A 0.8 TR Peak Junior 2.2 m/sec TR Peak PG 19.4 mmHg RVSP 22.0 mmHg Findings Left Ventricle: Normal left ventricular systolic function. Normal left ventricular cavity size. Normal left ventricular wall thickness. Ejection fraction is visually estimated at 65 %. Tissue Doppler/Mitral Doppler indices are consistent with impaired relaxation (Stage I diastolic dysfunction). Right Ventricle: Normal right ventricular size. Normal right ventricular systolic function. Left Atrium: The left atrium is normal in size. Right Atrium: The right atrium is normal in size. Mitral Valve: Mitral valve leaflets appear mildly thickened. Mild mitral annular calcification. Mild mitral valve regurgitation. Aortic Valve: No hemodynamically significant aortic stenosis by doppler. Aortic cusps appear mildly calcified. Mild aortic valve regurgitation. Tricuspid Valve: Normal appearance of the tricuspid valve. Estimated peak PA systolic pressure 22 mmHg. There is trace tricuspid regurgitation. Pulmonic Valve: Normal pulmonic valve appearance. Pericardium: Normal pericardium with no significant pericardial effusion. Aorta: Normal aortic root. IVC: Normal size and normal respiratory collapse consistent with normal right atrial pressure. Conclusions Normal left ventricular systolic function. Normal left ventricular cavity size. Normal left ventricular wall thickness. Ejection fraction is visually estimated at 65 %. Tissue Doppler/Mitral Doppler indices are consistent with impaired relaxation (Stage I diastolic dysfunction). Normal right ventricular size. Normal right ventricular systolic function. The left atrium is normal in size. The right atrium is normal in size. Mild mitral valve regurgitation. No hemodynamically significant aortic stenosis by doppler. Mild aortic valve regurgitation. Estimated peak PA systolic pressure 22 mmHg. There is trace tricuspid regurgitation. Normal pericardium with no significant pericardial effusion. Electronically Signed By: Clive Hughes 02-Oct-2016 15:54:35 -0700 Patient Name: DEIDRA YI Study Date: 01-Oct-2016 [id number]
== END 2016-10-02 18:16 | disposition home or self-care (01) | DRG 57 ==
LOC: E/R 23:32 → MS4 09-30 03:58
PROVIDERS: ADMIT Internal Medicine; ATTEND Internal Medicine
DX: G81.94 Hemiplegia, unspecified affecting left nondominant side (principal); I67.1 Cerebral aneurysm, nonruptured; N39.0 Urinary tract infection, site not specified; I48.91 Unspecified atrial fibrillation; I10 Essential (primary) hypertension; E03.9 Hypothyroidism, unspecified; E78.5 Hyperlipidemia, unspecified; K21.9 Gastro-esophageal reflux disease without esophagitis; Z85.72 Personal history of non-Hodgkin lymphomas; Z86.73 Personal history of transient ischemic attack (TIA), and cerebral infarction without residual deficits; Z79.02 Long term (current) use of antithrombotics/antiplatelets
CPT/HCPCS: 36415; 70450; 70544; 70549; 70553; 71010; 80048; 80053; 80061; 80307; 81001; 82550; 82553; 82962; 83036; 83735; 84439; 84443; 84484; 85025; 85610; 85730; 87086; 92610; 93005; 93306; 93880; 96374; 97110; 97116; 97163; 97167; J0692; J1200; J1815; J2930; J7030